=== PATIENT | female | born 1990 | race Caucasian/White ===

== ENCOUNTER 2020-04-12 | Emergency (ER) | payer BC ==
[2020-04-12] MEDS ORDERED: Sodium Chloride 0.9% 10 ML Syringe FLUSH PRN (00:29)
[2020-04-12] MEDS ORDERED: Ondansetron 4 MG/2 ML SDV IVPUSH ONE (00:33)
[2020-04-12] MEDS ORDERED: Morphine 2 MG/ML SYRINGE IVPUSH ONE ×2 (00:34→01:34)
[2020-04-12] MEDS ORDERED: Sodium Chloride 0.9% 1,000 ML IV SCH (00:45)
[2020-04-12] MEDS ORDERED: Ketorolac 30 MG/ML SDV IVPUSH ONE (01:33)
[2020-04-12] MEDS ORDERED: Iopamidol 755 Mg/ML 100 ML Bottle IV ONE (01:43)
--- NOTE | 2020-04-12 03:43 | EDM.PDOC ---
ED HPI GENERAL MEDICAL PROBLEM - General Chief Complaint: Abdominal Pain Stated Complaint: STOMACH PAIN Time Seen by Provider: 04/12/20 00:15 Source of Information: Reports: Patient History Limitations: Reports: No Limitations - History of Present Illness INITIAL COMMENTS - FREE TEXT/NARRATIVE: Patient presented to the ED because of sudden onset of left sided abdominal pain at 2230. The pain is sharp, 9/10 with associated N/V. There is no associated dysuria,urgency,frequency or any changes in bowel movement. Left Middle Abdomen Pain Score (Numeric/FACES): 8 - Related Data Allergies Allergy/AdvReac Type Severity Reaction Status Date / Time No Known Allergies Allergy Verified 04/12/20 00:10 Home Meds: Home Meds NK [No Known Home Meds] 04/12/20 [History] Past Medical History Psychiatric History: Reports: Anxiety, Depression - Past Surgical History GI Surgical History: Reports: Cholecystectomy Social & Family History - Family History Family Medical History: Noncontributory - Tobacco Use Smoking Status *Q: Never Smoker - Caffeine Use Caffeine Use: Reports: Coffee, Soda - Recreational Drug Use Recreational Drug Use: No ED ROS GENERAL - Review of Systems Review Of Systems: See Below Constitutional: Reports: No Symptoms HEENT: Reports: No Symptoms Respiratory: Reports: No Symptoms Cardiovascular: Reports: No Symptoms Endocrine: Reports: No Symptoms GI/Abdominal: Reports: Abdominal Pain, Nausea. Denies: Vomiting : Reports: No Symptoms Musculoskeletal: Reports: No Symptoms Skin: Reports: No Symptoms Neurological: Reports: No Symptoms ED EXAM, GI/ABD - Physical Exam Exam: See Below Exam Limited By: No Limitations General Appearance: Alert, No Apparent Distress Ears: Normal External Exam, Normal Canal, Hearing Grossly Normal Nose: Normal Inspection, Normal Mucosa Throat/Mouth: Normal Inspection, Normal Lips, Normal Teeth, Normal Gums Head: Atraumatic, Normocephalic Neck: Normal Inspection, Supple, Non-Tender, Full Range of Motion Respiratory/Chest: No Respiratory Distress, Lungs Clear, Normal Breath Sounds Cardiovascular: Normal Peripheral Pulses, Regular Rate, Rhythm, No Edema, No Gallop, No JVD, No Murmur GI/Abdominal Exam: Normal Bowel Sounds, Soft, No Distention, Other (Tenderness over the LLQ) Back Exam: Normal Inspection, Full Range of Motion Extremities: Normal Inspection, Normal Range of Motion Course - Vital Signs Text/Narrative:: Labs/[id number] CT was discussed with patient and verbalized full understanding NS 1 L bolus Zofran 4 mg IV x1 dose Morphine 2 mg IV x2 doses toradol 30 mg IV Last Recorded V/S: Last Vital Signs Temp 36.8 C 04/12/20 00:11 Pulse 117 H 04/12/20 00:11 Resp 18 04/12/20 00:11 BP 123/69 04/12/20 00:11 Pulse Ox 99 04/12/20 00:11 - Orders/Labs/Meds Orders: Active Orders 24 hr Category Date Time Status Chest Abdomen Pelvis w Cont [CT] Stat Exams 04/12/20 00:29 Ordered UA W/MICROSCOPIC [URIN] Stat Lab 04/12/20 00:29 Ordered Sodium Chloride 0.9% [Normal Saline] 1,000 ml Med 04/12/20 00:45 Active IV ASDIRECTED Sodium Chloride 0.9% [Saline Flush] Med 04/12/20 00:29 Active 10 ml FLUSH ASDIRECTED PRN Saline Lock Insert [OM.PC] Routine Oth 04/12/20 00:29 Ordered Medication Orders Sodium Chloride (Normal Saline) 1,000 mls @ 999 mls/hr IV ASDIRECTED LELA Last Admin: 04/12/20 00:45 Dose: 999 mls/hr Documented by: TIA Sodium Chloride (Saline Flush) 10 ml FLUSH ASDIRECTED PRN PRN Reason: Keep Vein Open Labs: Laboratory Tests 04/12/20 04/12/20 04/12/20 Range/Units 00:35 00:35 00:35 WBC 19.3 H (4.5-12.0) X10-3/uL RBC 4.31 (3.23-5.20) x10(6)uL Hgb 12.5 (11.5-15.5) g/dL Hct 38.0 (30.0-51.3) % MCV 88.3 (80-96) fL MCH 29.0 (27.7-33.6) pg MCHC 32.8 (32.2-35.4) g/dL RDW 12.8 (11.5-15.5) % Plt Count 325 (125-369) X10(3)uL MPV 7.0 L (7.4-10.4) fL Add Manual Diff Yes Neutrophils % (Manual) 84 H (46-82) % Lymphocytes % (Manual) 12 L (13-37) % Monocytes % (Manual) 3 L (4-12) % Eosinophils % (Manual) 1 (0-5) % Sodium 141 (135-145) mmol/L Potassium 4.1 (3.5-5.3) mmol/L Chloride 105 (100-110) mmol/L Carbon Dioxide 28 (21-32) mmol/L BUN 7 (7-18) mg/dL Creatinine 0.7 (0.55-1.02) mg/dL Est Cr Clr Drug Dosing 97.21 mL/min Estimated GFR (MDRD) > 60 (>60) BUN/Creatinine Ratio 10.0 (9-20) Glucose 112 (80-116) mg/dL Calcium 8.4 L (8.6-10.2) mg/dL Total Bilirubin 0.4 (0.1-1.3) mg/dL AST 17 (5-25) IU/L ALT 16 (12-36) U/L Alkaline Phosphatase 104 (56-112) IU/L Total Protein 6.9 (6.0-8.0) g/dL Albumin 3.3 L (3.5-5.2) g/dL Globulin 3.6 g/dL Albumin/Globulin Ratio 0.9 Amylase 42 (25-115) U/L Lipase 65 L (73-393) U/L HCG, Quant (<5) mIU/mL 04/12/20 Range/Units 00:35 WBC (4.5-12.0) X10-3/uL RBC (3.23-5.20) x10(6)uL Hgb (11.5-15.5) g/dL Hct (30.0-51.3) % MCV (80-96) fL MCH (27.7-33.6) pg MCHC (32.2-35.4) g/dL RDW (11.5-15.5) % Plt Count (125-369) X10(3)uL MPV (7.4-10.4) fL Add Manual Diff Neutrophils % (Manual) (46-82) % Lymphocytes % (Manual) (13-37) % Monocytes % (Manual) (4-12) % Eosinophils % (Manual) (0-5) % Sodium (135-145) mmol/L Potassium (3.5-5.3) mmol/L Chloride (100-110) mmol/L Carbon Dioxide (21-32) mmol/L BUN (7-18) mg/dL Creatinine (0.55-1.02) mg/dL Est Cr Clr Drug Dosing mL/min Estimated GFR (MDRD) (>60) BUN/Creatinine Ratio (9-20) Glucose (80-116) mg/dL Calcium (8.6-10.2) mg/dL Total Bilirubin (0.1-1.3) mg/dL AST (5-25) IU/L ALT (12-36) U/L Alkaline Phosphatase (56-112) IU/L Total Protein (6.0-8.0) g/dL Albumin (3.5-5.2) g/dL Globulin g/dL Albumin/Globulin Ratio Amylase (25-115) U/L Lipase (73-393) U/L HCG, Quant < 5 L (<5) mIU/mL Meds: Medications Generic Name Dose Route Start Last Admin Trade Name Freq PRN Reason Stop Dose Admin Sodium Chloride 1,000 mls @ 999 mls/hr 04/12/20 00:45 04/12/20 00:45 Normal Saline IV 999 mls/hr ASDIRECTED LELA Administration Sodium Chloride 10 ml 04/12/20 00:29 Saline Flush FLUSH ASDIRECTED PRN Keep Vein Open Discontinued Medications Generic Name Dose Route Start Last Admin Trade Name Freq PRN Reason Stop Dose Admin Iopamidol 100 ml 04/12/20 01:43 04/12/20 01:59 Isovue-370 (76%) IV 04/12/20 01:44 81 ml ONETIME ONE Administration Ketorolac Tromethamine 30 mg 04/12/20 01:33 04/12/20 01:38 Toradol IVPUSH 04/12/20 01:34 30 mg ONETIME ONE Administration Morphine Sulfate 2 mg 04/12/20 00:34 04/12/20 00:46 Morphine IVPUSH 04/12/20 00:35 2 mg ONETIME ONE Administration Morphine Sulfate 2 mg 04/12/20 01:34 04/12/20 01:39 Morphine IVPUSH 04/12/20 01:35 2 mg ONETIME ONE Administration Ondansetron HCl 4 mg 04/12/20 00:33 04/12/20 00:46 Zofran IVPUSH 04/12/20 00:34 4 mg ONETIME ONE Administration Departure - Departure Time of Disposition: 03:45 Disposition: DC/Tfer to Acute Hospital 02 Condition: Good Clinical Impression: Ovarian ca, Abdominal pain - Discharge Information Referrals: PCP,None [Primary Care Provider] - Sepsis Event Note (ED) - Evaluation Sepsis Screening Result: No Definite Risk - Focused Exam Vital Signs: Vital Signs Temp Pulse Resp BP Pulse Ox 04/12/20 00:11 36.8 C 117 H 18 123/69 99 - My Orders Last 24 Hours: My Active Orders 04/12/20 00:29 Chest Abdomen Pelvis w Cont [CT] Stat UA W/MICROSCOPIC [URIN] Stat Sodium Chloride 0.9% [Saline Flush] 10 ml FLUSH ASDIRECTED PRN Saline Lock Insert [OM.PC] Routine 04/12/20 00:45 Sodium Chloride 0.9% [Normal Saline] 1,000 ml IV ASDIRECTED - Assessment/Plan Last 24 Hours: My Active Orders 04/12/20 00:29 Chest Abdomen Pelvis w Cont [CT] Stat UA W/MICROSCOPIC [URIN] Stat Sodium Chloride 0.9% [Saline Flush] 10 ml FLUSH ASDIRECTED PRN Saline Lock Insert [OM.PC] Routine 04/12/20 00:45 Sodium Chloride 0.9% [Normal Saline] 1,000 ml IV ASDIRECTED
[2020-04-12] MEDS ORDERED: HYDROmorphone 2 MG/ML SDV IVPUSH ONE (03:48)
[2020-04-12] MEDS ORDERED: Acetaminophen/oxyCODONE 325-5 MG Tab PO ONE (04:25)
[2020-04-12] MEDS ORDERED: Ondansetron 4 MG Tab.DIS PO ONE (04:25)
== END 2020-04-12 04:58 ==
LOC: FB.ED
DX: C56.1 Malignant neoplasm of right ovary (principal)
CPT/HCPCS: 71260; 74177; 80053; 82150; 83690; 84702; 85025; 96361; 96374; 96375; 96376; 99285; A9270; J1170; J1885; J2270; J2405; J7030; Q9967; 99284